=== PATIENT | female | born 1965 | race Asian ===

== ENCOUNTER 2020-04-29 12:39 | Outpatient (CLI) | payer OTHER, BC ==
[2020-04-29] MEDS ORDERED: LIDOCAINE-MPF 1%, 5ML ONE (13:15)
== END 2020-04-29 23:59 | disposition home or self-care (01) ==
LOC: RAD 12:39
PROVIDERS: ATTEND Obstetrics & Gynecology
DX: E04.1 Nontoxic single thyroid nodule (principal)
CPT/HCPCS: 10005; 88173

== ENCOUNTER 2020-05-28 13:08 | Outpatient (CLI) | payer OTHER, BC ==
[~2020-05-28 13:08] MED LIST: LIDOCAINE 1%, 10ML ONE
== END 2020-05-28 23:59 | disposition home or self-care (01) ==
LOC: RAD 13:08
PROVIDERS: ATTEND Surgery
DX: E04.1 Nontoxic single thyroid nodule (principal); E11.9 Type 2 diabetes mellitus without complications; I10 Essential (primary) hypertension; E78.00 Pure hypercholesterolemia, unspecified; Z79.899 Other long term (current) drug therapy; Z98.890 Other specified postprocedural states; Z82.49 Family history of ischemic heart disease and other diseases of the circulatory system; Z83.3 Family history of diabetes mellitus
CPT/HCPCS: 10005; 88172; 88173; J3490; 88177